=== PATIENT | female | born 1970 | race African-American/Black ===

== ENCOUNTER 2022-11-06 17:32 | Emergency (ER) | payer MEDICAID, BC | END 2022-11-06 18:32 | disposition home or self-care (01) | LOC: NAV ERS 17:32 | DX: B34.9 Viral infection, unspecified (principal); Z20.822 Contact with and (suspected) exposure to COVID-19; I10 Essential (primary) hypertension; Z79.899 Other long term (current) drug therapy | CPT/HCPCS: 87081; 87430; 87804; 99283; U0003; U0005 ==

== ENCOUNTER 2022-11-26 12:45 | Emergency (ER) | payer BC, MEDICAID ==
[2022-11-26] MEDS ORDERED: diphenhydrAMINE 50 MG/ML VIAL ONE (13:42)
[2022-11-26] MEDS ORDERED: Sodium Chloride 0.9% 1,000 ML ONE (13:42)
[2022-11-26] MEDS ORDERED: Metoclopramide HCl 10 MG/2 ML VIAL ONE ×2 (13:42→16:19)
[2022-11-26] MEDS ORDERED: Ketorolac Tromethamine 30 MG/ML VIAL ONE (16:19)
[2022-11-26] MEDS ORDERED: methylPREDNISolone Sod Succ/PF 125 MG/2 ML VIAL ONE (16:19)
[2022-11-26] MEDS ORDERED: Magnesium 2 GM/50 ML BAG (IN WATER) ONE (16:19)
[2022-11-26] MEDS ORDERED: Sodium Chloride 0.9% 100 ML ONE (16:19)
== END 2022-11-26 17:58 | disposition home or self-care (01) ==
LOC: NAV ERS 12:45
DX: R51.9 Headache, unspecified (principal); I10 Essential (primary) hypertension
CPT/HCPCS: 70450; 96365; 96367; 96375; 96376; J1200; J1885; J2765; J2930; J3475; J7050

== ENCOUNTER 2023-10-16 13:22 | Emergency (ER) | payer BC, MEDICARE, MEDICAID ==
[2023-10-16] MEDS ORDERED: Ibuprofen 200 MG TAB ONE (14:56)
== END 2023-10-16 15:06 | disposition home or self-care (01) ==
LOC: NAV ERS 13:22
DX: J20.9 Acute bronchitis, unspecified (principal); B96.89 Other specified bacterial agents as the cause of diseases classified elsewhere; I10 Essential (primary) hypertension
CPT/HCPCS: 99283

== ENCOUNTER 2024-04-26 08:48 | Emergency (ER) | payer BC, MEDICARE ==
[2024-04-26] MEDS ORDERED: Benzonatate 100 MG CAP ONE (09:34)
[2024-04-26] MEDS ORDERED: Ibuprofen 800 MG TAB ONE (09:34)
[2024-04-26 10:26] LABS: Influenza A by NAA Not Detected (NotDetected); Influenza B by NAA Not Detected (NotDetected); SARS-CoV-2 NAA Rapid Test DETECTED (NotDetected)
== END 2024-04-26 10:52 | disposition home or self-care (01) ==
LOC: NAV ERS 08:48
DX: U07.1 COVID-19 (principal); I10 Essential (primary) hypertension; Z79.899 Other long term (current) drug therapy
CPT/HCPCS: 99283

== ENCOUNTER 2025-04-03 19:20 | Emergency (ER) | payer BC ==
[2025-04-03] MEDS ORDERED: Dexamethasone 10 MG/ML VIAL ONE (19:37)
== END 2025-04-03 21:24 | disposition home or self-care (01) ==
LOC: NAV ERS 19:20
DX: M54.42 Lumbago with sciatica, left side (principal); M54.41 Lumbago with sciatica, right side; I10 Essential (primary) hypertension; Z79.899 Other long term (current) drug therapy
CPT/HCPCS: 72100; 96372; 99283; J1100; J1885